=== PATIENT | female | born 1995 | race Caucasian/White ===

== ENCOUNTER 2016-10-29 06:52 | Inpatient (IN) | payer OTHER ==
[~2016-10-29 06:52] MED LIST: ALPR1TAB3 PO; MICR1TAB PO
[2016-10-29] MEDS ORDERED: MAGNESIUM HYDROXIDE SUSP 30 ML CUP PO PRN (10:45)
[2016-10-29] MEDS ORDERED: ACETAMINOPHEN 325 MG TAB PO PRN (10:45)
[2016-10-29] MEDS ORDERED: ALUMINUM/MAGNESIUM/SIMETH 30 ML CUP PO PRN (10:45)
[2016-10-30 06:21] VITALS: BP 110/53; PULSE 53; RESP 16; TEMP 99; O2SAT 100
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
[2016-10-30 14:57] LABS: ANION GAP 6 MEQ/L (5-15); BICARBONATE 29.4 MEQ/L (21.0-32.0); BLOOD UREA NITROGEN 14 MG/DL (7-18); CHLORIDE 106 MEQ/L (98-107); GLOMERULAR FILTRATION RATE 77 ML/MIN (>89); POTASSIUM 3.8 MEQ/L (3.5-5.1); SODIUM (NA) 141 MEQ/L (136-145)
[2016-10-30 14:59] LABS: HDL CHOLESTEROL 50.2 MG/DL (40.0-60.0); LDL CHOLESTEROL 73 MG/DL (0-99)
[2016-10-30 16:42] LABS: HEMOGLOBIN A1a 0.9 %; HEMOGLOBIN A1b 1.4 %; HEMOGLOBIN Ao 87.4 %; HEMOGLOBIN LA1C 1.9 %; HEMOGLOBIN P3 3.3 %
== END 2016-10-30 15:30 | disposition home or self-care (01) | DRG 897 ==
LOC: H260 09:54
PROVIDERS: ADMIT Psychiatry & Neurology Psychiatry; ATTEND Psychiatry & Neurology Psychiatry
DX: F14.10 Cocaine abuse, uncomplicated (principal); F10.10 Alcohol abuse, uncomplicated; F12.10 Cannabis abuse, uncomplicated; F43.25 Adjustment disorder with mixed disturbance of emotions and conduct
CPT/HCPCS: 80048; 80061; 83036

== ENCOUNTER 2017-08-16 22:16 | Emergency (ER) | payer OTHER ==
[~2017-08-16] VITALS: Ht 162.6 cm; Wt 62.0 kg
[2017-08-16 22:42] VITALS: BP 118/78; PULSE 89; RESP 16; TEMP 98.2; O2SAT 98
[2017-08-16] MEDS ORDERED: IBUP-232 PO (23:29)
[2017-08-16] MEDS ORDERED: ROBA750T PO (23:29)
--- NOTE | 2017-08-16 23:29 | PD ---
HPI Chief Complaint: Flank/Kidney Pain Time Seen by Provider: 23:16 Travel History International Travel<30 days: No Contact w/Intl Traveler<30days: No Traveled to known affect area: No History of Present Illness HPI 31-year-old female complains of low back pain. Patient states that she has history chronic back pain for years. Patient states that she had x-ray done before which showed disc disease. Patient has been taking baclofen for pain. Patient states that the pain is worse this evening. Patient states that the pain is cramping pain and sharp pain localized on the left lateral flank area and also low back area. Patient denies any pain radiation. Patient denies abdominal pain. Patient denies any dysuria frequency. Patient denies any vaginal discharge or bleeding. Patient denies any chance of being . PFSH Past Medical History Cardiovascular Problems: No Gastrointestinal Disorders: No Genitourinary: No Musculoskeletal: No Neurologic: No Psychiatric: Yes (Anxiety) Reproductive: No Respiratory: No Immunizations Current: Yes Tetanus Vaccination: Unknown Influenza Vaccination: No ?: Unknown Past Surgical History Other Surgery: No Social History Alcohol Use: No Tobacco Use: No Substance Use: Yes (cocaine in tox screen) Allergies-Medications (Allergen,Severity, Reaction): Coded Allergies: No Known Allergies (Unverified Adverse Reaction, Unknown, 08/16/17) Reported Meds & Prescriptions Reported Meds & Active Scripts Active Robaxin (Methocarbamol) 750 Mg Tab 750 Mg PO QID Ibuprofen 600 Mg Tab 600 Mg PO TID Reported Alprazolam 1 Mg Tab 1 Tab PO TID PRN Microgestin 1 mg/20 mcg 1 mg/20 mcg Tab 1 Tab PO DAILY Review of Systems General / Constitutional: No: Fever Eyes: No: Visual changes HENT: No: Headaches Cardiovascular: No: Chest Pain or Discomfort Respiratory: No: Shortness of Breath Gastrointestinal: No: Abdominal Pain Genitourinary: No: Dysuria Musculoskeletal: No: Pain Skin: No Rash Neurologic: No: Weakness Psychiatric: No: Depression Endocrine: No: Polydipsia Hematologic/Lymphatic: No: Easy Bruising Physical Exam Narrative GENERAL: Well-nourished, well-developed patient. SKIN: Focused skin assessment warm/dry. HEAD: Normocephalic. EYES: No scleral icterus. No injection or drainage. NECK: Supple, trachea midline. No JVD or lymphadenopathy. CARDIOVASCULAR: Regular rate and rhythm without murmurs, gallops, or rubs. RESPIRATORY: Breath sounds equal bilaterally. No accessory muscle use. GASTROINTESTINAL: Abdomen soft, non-tender, nondistended. MUSCULOSKELETAL: No cyanosis, or edema. BACK: Patient has moderate tenderness on palpation of lumbar area, without obvious deformity. No CVA tenderness. Neurologic exam normal. Data Data Last Documented VS Vital Signs Date Time Temp Pulse Resp B/P (MAP) Pulse Ox O2 Delivery O2 Flow Rate FiO2 08/16/17 22:42 98.2 89 16 118/78 (91) 98 Orders Orders Urinalysis - C+S If Indicated (08/16/17 23:22) Ibuprofen (Motrin) (08/16/17 23:30) MDM Medical Decision Making Medical Screen Exam Complete: Yes Emergency Medical Condition: Yes Differential Diagnosis Differential diagnosis including acute exacerbation of low back pain, UTI, pyelonephritis. Narrative Course 21-year-old female with acute exacerbation of back pain. Ibuprofen 600 mg p.o. given. 23:33 PM. I was informed by my nurse the patient left the room. Diagnosis Primary Impression: Acute exacerbation of chronic low back pain Patient Instructions: General Instructions Additional Instructions: Patient left the room prior to discharge and prescription medication was not given to the patient. Med/Other Pt SpecificInfo: Prescription(s) given Scripts Methocarbamol (Robaxin) 750 Mg Tab 750 MG PO QID for Muscle Spasm, #60 TAB 0 Refills Prov: Howard Klein MD 08/16/17 Ibuprofen (Ibuprofen) 600 Mg Tab 600 MG PO TID for Pain, #60 TAB 0 Refills Prov: Howard Klein MD 08/16/17 Disposition: 07 AGAINST MEDICAL ADVICE Condition: Stable Howard Klein MD Aug 16, 2017 23:29
[2017-08-16] MEDS ORDERED: IBUPROFEN 600 MG TAB PO ONE (23:30)
== END 2017-08-16 23:50 | disposition home or self-care (01) ==
LOC: NEPD 22:16
DX: M54.5 Low back pain (principal); G89.29 Other chronic pain; F41.9 Anxiety disorder, unspecified; F14.90 Cocaine use, unspecified, uncomplicated
CPT/HCPCS: 99281